=== PATIENT | male | born 1995 | race Caucasian/White ===

== ENCOUNTER 2016-03-23 16:01 | Emergency (ER) | payer OTHER ==
[~2016-03-23] VITALS: Ht 180.3 cm; Wt 85.0 kg
[2016-03-23 16:03] VITALS: BP 136/90; PULSE 100; RESP 16; TEMP 98.1; O2SAT 95
[2016-03-23 16:11] VITALS: TEMP 98; O2SAT 97
[2016-03-23] MEDS ORDERED: IBUP800T23 PO (16:58)
[2016-03-23] MEDS ORDERED: ZOFR4TAB3 SL (16:58)
[2016-03-23] MEDS ORDERED: CYCL1TAB29 PO (16:58)
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
== END 2016-03-23 17:24 | disposition home or self-care (01) ==
LOC: NEPB 16:01
DX: S06.0X0A Concussion without loss of consciousness, initial encounter (principal); R51 Headache; V49.40XA Driver injured in collision with unspecified motor vehicles in traffic accident, initial encounter
CPT/HCPCS: 99284